=== PATIENT | male | born 1970 ===

== ENCOUNTER 2016-09-07 08:29 | Emergency (ER) | payer OTHER ==
[2016-09-07 08:34] VITALS: RESP 18; O2SAT 97
[2016-09-07] MEDS ORDERED: Sodium Chloride 0.9% 1,000 ML IV ONE (09:47)
[2016-09-07] MEDS ORDERED: Sodium Chloride 0.9% 1,000 ML ONE (10:05)
[2016-09-07 10:19] LABS: BASO # 0.1 K/uL (0.0-0.2); BASO % 0.7 % (0.0-2.0); EOS % 0.2 % (0.0-4.0); HEMATOCRIT 41.1 % (35.0-51.0); LYMPH # 1.7 K/uL (1.0-4.3); LYMPH % 17.7 % (20.0-40.0); MEAN CORPUSCULAR HEMOGLOBIN 28.8 pg (27.0-31.0); MEAN CORPUSCULAR HGB CONC 34.7 g/dL (33.0-37.0); MEAN PLATELET VOLUME 8.1 fL (7.2-11.7); MONO # 0.6 K/uL (0.0-0.8); MONO % 6.2 % (0.0-10.0); NRBC % 0.1 % (0.0-2.0); RED CELL DISTRIBUTION WIDTH 13.7 % (11.5-14.5); WHITE BLOOD COUNT 9.5 K/uL (4.8-10.8)
[2016-09-07 10:37] LABS: POTASSIUM 3.6 mmol/L (3.6-5.2); SODIUM 136 mmol/L (132-148)
[2016-09-07 10:39] LABS: BILIRUBIN,TOTAL 1.1 mg/dL (0.2-1.3); GFR AFRICAN-AMERICAN > 60
[2016-09-07 10:40] LABS: ALB/GLOB RATIO 1.4 (1.0-2.1); ALKALINE PHOSPHATASE 83 U/L (38-126); ALT/SGPT 44 U/L (21-72); AST/SGOT 41 U/L (17-59); BLOOD UREA NITROGEN 12 mg/dL (9-20); CARBON DIOXIDE 24 mmol/L (22-30); GLUCOSE,RANDOM 127 mg/dL (75-110); TOTAL PROTEIN 7.1 g/dL (6.3-8.3)
[2016-09-07 10:41] LABS: CHLORIDE 98 mmol/L (98-107)
--- NOTE | 2016-09-07 11:04 | C.PDOC ---
History Of Present Illness A 45 year old male presents to the ED c/o headaches across the front of the forehead for 4 days. Patient notes pain is worse in his life but experiences pain movements and symptoms is unrelieved by Motrin or Tylenol. Patient notes having a subjective fever and general achy pains all over the body but denies nausea, vomiting, photophobia, extremity weakness or any other complaints. Patient reports no other medical problems. Time Seen by Provider: 09/07/16 09:07 Chief Complaint (Nursing): Headache History Per: Patient History/Exam Limitations: no limitations Onset/Duration Of Symptoms: Days Current Symptoms Are (Timing): Still Present Severity: Mild Associated Symptoms: denies: Photophobia, Nausea, Vomiting, Extremity Weakness Past Medical History Reviewed: Historical Data, Nursing Documentation, Vital Signs Vital Signs: Last Vital Signs Temp 98.4 F 09/07/16 11:27 Pulse 63 09/07/16 11:27 Resp 18 09/07/16 11:27 BP 130/78 09/07/16 11:27 Pulse Ox 97 09/07/16 11:54 Surgical History: Cholecystectomy - [facility] Procedures CLOSURE SKIN & SUBCUTANEOUS NEC (10/26/12) LAPAROSCOPIC CHOLECYSTECTOMY (08/27/13) TETANUS TOXOID ADMINIST (10/26/12) Family History: States: Unknown Family Hx - Social History Hx Tobacco Use: No Hx Alcohol Use: Yes Hx Substance Use: No - Immunization History Hx Tetanus Toxoid Vaccination: No Hx Influenza Vaccination: No Hx Pneumococcal Vaccination: No Review Of Systems Except As Marked, All Systems Reviewed And Found Negative. Gastrointestinal: Negative for: Nausea, Vomiting Neurological: Negative for: Other (Photophobia. Extremity weakness) Physical Exam - Physical Exam Appears: Non-toxic, No Acute Distress Skin: Warm, Dry Head: Atraumatic, Normacephalic Eye(s): bilateral: Normal Inspection, PERRL, EOMI Respiratory: Normal Breath Sounds, No Rales, No Rhonchi, No Wheezing Gastrointestinal/Abdominal: Soft, No Tenderness Neurological/Psych: Oriented x3, Normal Speech, Normal Cognition, Normal Cranial Nerves, Normal Motor ED Course And Treatment - Laboratory Results Result Diagrams: 09/07/16 10:13 09/07/16 10:13 O2 Sat by Pulse Oximetry: 97 (Room air) Pulse Ox Interpretation: Normal - CT Scan/US Head Other Rad Studies (CT/US): Radiology Report Reviewed CT/US Interpretation: FINDINGS: HEMORRHAGE: No intracranial hemorrhage. BRAIN : No mass effect or edema. Small charles cisterna magna versus arachnoid cyst. No atrophy or chronic microvascular ischemic changes. Please note that MRI with diffusion imaging is more sensitive in the detection of acute ischemic event. VENTRICLES: No hydrocephalus. CALVARIUM: Unremarkable. PARANASAL SINUSES: Unremarkable as visualized. No significant inflammatory changes. MASTOID AIR CELLS: Unremarkable as visualized. No inflammatory changes. OTHER FINDINGS: None. IMPRESSION: No acute intracranial pathology identified. Findings as above. Medical Decision Making Medical Decision Making: Plans: -Toradol -Reglan -IV fluids -Reassess and disposition Pt feeling much better post peds WRIGHT resolved Labs and CT unremarkable no indication of SAH or infectious cause Plan dc home Disposition Counseled Patient/Family Regarding: Diagnosis, Need For Followup - Disposition Referrals: [facility] [Outside] Disposition: HOME/ ROUTINE Disposition Time: 14:30 Condition: GOOD Prescriptions: Naproxen [Naprosyn] 1 tab PO BID PRN #25 tab PRN Reason: Pain Instructions: Acute Headache (ED) Forms: Work Excuse - Clinical Impression Clinical Impression: Headache - Scribe Statement The provider has reviewed the documentation as recorded by the Scribe Luigi quijano All medical record entries made by the Scribe were at my direction and personally dictated by me. I have reviewed the chart and agree that the record accurately reflects my personal performance of the history, physical exam, medical decision making, and the department course for this patient. I have also personally directed, reviewed, and agree with the discharge instructions and disposition.
--- NOTE | 2016-09-07 14:17 | CT ---
PROCEDURE: CT HEAD WITHOUT CONTRAST. HISTORY: WRIGHT COMPARISON: None available. TECHNIQUE: Axial computed tomography images were obtained through the head/brain without intravenous contrast. Radiation dose: Total exam DLP = 769.75 mGy-cm. This CT exam was performed using one or more of the following dose reduction techniques: Automated exposure control, adjustment of the mA and/or kV according to patient size, and/or use of iterative reconstruction technique. FINDINGS: HEMORRHAGE: No intracranial hemorrhage. BRAIN: No mass effect or edema. Small charles cisterna magna versus arachnoid cyst. No atrophy or chronic microvascular ischemic changes. Please note that MRI with diffusion imaging is more sensitive in the detection of acute ischemic event. VENTRICLES: No hydrocephalus. CALVARIUM: Unremarkable. PARANASAL SINUSES: Unremarkable as visualized. No significant inflammatory changes. MASTOID AIR CELLS: Unremarkable as visualized. No inflammatory changes. OTHER FINDINGS: None. IMPRESSION: No acute intracranial pathology identified. Findings as above.
[2016-09-07 14:45] VITALS: BP 115/72; PULSE 65; TEMP 98.2
== END 2016-09-07 14:40 | disposition home or self-care (01) ==
LOC: C.ER 08:29
DX: R51 Headache (principal)
CPT/HCPCS: 70450; 80053; 85025; 96361; 96374; 96375; 99285; J1885; J2765; J7040

== ENCOUNTER 2016-12-19 18:50 | Emergency (ER) | payer OTHER ==
[2016-12-19 18:56] VITALS: PULSE 80; TEMP 98
[2016-12-19 19:39] LABS: RBC URINE 200 /hpf (0-3); URINE BACTERIA OCC (<OCC); URINE BILIRUBIN NEGATIVE (NEGATIVE); URINE BLOOD 3+ (NEGATIVE); URINE COLOR Yellow (YELLOW); URINE GLUCOSE (UA) NORMAL (Normal); URINE KETONE NEGATIVE (NEGATIVE); URINE LEUKOCYTE ESTERASE NEG Leu/uL (Negative); URINE PROTEIN NEGATIVE (NEGATIVE); URINE UROBILINOGEN NORMAL mg/dL (0.2-1.0); WBC URINE 2 /hpf (0-5)
[2016-12-19] MEDS ORDERED: Sodium Chloride 0.9% 500 ML IV ONE (19:58)
[2016-12-19] MEDS ORDERED: Sodium Chloride 0.9% 1,000 ML ONE (20:20)
[2016-12-19 20:22] LABS: BASO # 0.1 K/uL (0.0-0.2); BASO % 0.7 % (0.0-2.0); EOS # 0.1 K/uL (0.0-0.7); EOS % 0.8 % (0.0-4.0); HEMATOCRIT 44.1 % (35.0-51.0); LYMPH # 2.3 K/uL (1.0-4.3); LYMPH % 31.3 % (20.0-40.0); MEAN CELL VOLUME 83.5 fL (80.0-94.0); MEAN CORPUSCULAR HEMOGLOBIN 29.1 pg (27.0-31.0); MEAN CORPUSCULAR HGB CONC 34.9 g/dL (33.0-37.0); MEAN PLATELET VOLUME 7.9 fL (7.2-11.7); MONO # 0.6 K/uL (0.0-0.8); MONO % 8.5 % (0.0-10.0); RED CELL DISTRIBUTION WIDTH 14.1 % (11.5-14.5); WHITE BLOOD COUNT 7.3 K/uL (4.8-10.8)
[2016-12-19 20:37] LABS: CHLORIDE 100 mmol/L (98-107)
[2016-12-19 20:38] LABS: POTASSIUM 3.9 mmol/L (3.6-5.2); SODIUM 139 mmol/L (132-148)
[2016-12-19 20:40] LABS: ALB/GLOB RATIO 1.5 (1.0-2.1); ALKALINE PHOSPHATASE 73 U/L (38-126); AST/SGOT 22 U/L (17-59); BILIRUBIN,TOTAL 0.7 mg/dL (0.2-1.3); CARBON DIOXIDE 23 mmol/L (22-30); GFR AFRICAN-AMERICAN > 60; TOTAL PROTEIN 6.8 g/dL (6.3-8.3)
[2016-12-19 20:41] LABS: ALT/SGPT 44 U/L (21-72); BLOOD UREA NITROGEN 19 mg/dL (9-20); CALCIUM 8.9 mg/dl (8.6-10.4); GLUCOSE,RANDOM 103 mg/dL (75-110)
--- NOTE | 2016-12-19 22:03 | US ---
EXAM: US Retroperitoneal Complete, Renal CLINICAL HISTORY: 46 years old, male; Pain; Other: Flank pain; Additional info: R flank pain TECHNIQUE: Real-time ultrasound of the retroperitoneum (complete) with image documentation. EXAM DATE/TIME: 12/19/2016 7:59 PM COMPARISON: There are no prior studies for comparison. FINDINGS: Right kidney: Right kidney measures approximately 12.4 x 6.4 x 7.5 cm. Corticomedullary differentiation is maintained. There is moderate pelvocaliectasis. There is intrarenal flow on color imaging. There is a small shadowing nonobstructing right lower pole stone. Left kidney: Left kidney measures approximately 11.5 x 5.7 x 6 cm. There is no pelvocaliectasis. Corticomedullary differentiation is visualized. There is a nonobstructing left mid pole stone. There is a nonobstructing left lower pole stone. Bladder: Bladder is almost completely empty. IMPRESSION: Bilateral nonobstructing renal stones; right pelvocaliectasis, right ureteral stone suspected
--- NOTE | 2016-12-19 22:22 | C.PDOC ---
History Of Present Illness 46 year old male who presents to the ER with a complaint of 1 day h/o sudden onset of intermittent, squeezing, right flank pain. Patient states he has never had similar symptoms in the past; denies Hx of kidney stones, fever, chills, nausea, vomiting, diarrhea, dysuria, hematuria, incontinence, weakness, or numbness. Time Seen by Provider: 12/19/16 19:17 Chief Complaint (Nursing): Back Pain History Per: Patient History/Exam Limitations: no limitations Onset/Duration Of Symptoms: Hrs Current Symptoms Are (Timing): Still Present Quality Of Discomfort: Unable To Describe Previous Symptoms: None Associated Symptoms: None Exacerbating Factor(s): Nothing Recent travel outside of the [place]: No Past Medical History Reviewed: Historical Data, Nursing Documentation, Vital Signs Vital Signs: Last Vital Signs Temp 98 F 12/19/16 18:53 Pulse 80 12/19/16 22:58 Resp 14 12/19/16 22:58 BP 120/80 12/19/16 22:58 Pulse Ox 99 12/19/16 22:58 - Medical History PMH: No Chronic Diseases Surgical History: Cholecystectomy - [facility] Procedures CLOSURE SKIN & SUBCUTANEOUS NEC (10/26/12) LAPAROSCOPIC CHOLECYSTECTOMY (08/27/13) TETANUS TOXOID ADMINIST (10/26/12) Family History: States: Unknown Family Hx - Social History Hx Tobacco Use: No Hx Alcohol Use: Yes Hx Substance Use: No - Immunization History Hx Tetanus Toxoid Vaccination: No Hx Influenza Vaccination: No Hx Pneumococcal Vaccination: No Review Of Systems Except As Marked, All Systems Reviewed And Found Negative. Constitutional: Negative for: Fever, Chills Gastrointestinal: Negative for: Nausea, Vomiting, Diarrhea Genitourinary: Negative for: Dysuria, Incontinence, Hematuria Musculoskeletal: Positive for: Back Pain Neurological: Negative for: Weakness, Numbness Physical Exam - Physical Exam Appears: Well, Non-toxic, No Acute Distress Skin: Normal Color, Warm, Dry Head: Atraumatic, Normacephalic Oral Mucosa: Moist Neck: Normal, Normal ROM, Supple Chest: Symmetrical, No Tenderness Cardiovascular: Rhythm Regular, No Murmur Respiratory: Normal Breath Sounds, No Rales, No Rhonchi, No Wheezing Gastrointestinal/Abdominal: Soft, No Tenderness, No Organomegaly, No Mass, No Distention, No Guarding, No Rebound Back: Normal Inspection, CVA Tenderness (Mild right), No Vertebral Tenderness Extremity: Normal ROM, No Tenderness, No Swelling Pulses: Left Radial: Normal, Right Radial: Normal Neurological/Psych: Oriented x3, Normal Speech, Normal Cognition, Normal Cranial Nerves, Normal Motor, Normal Sensation ED Course And Treatment - Laboratory Results Result Diagrams: 12/19/16 20:18 12/19/16 20:18 Lab Interpretation: Normal Interpretation Of Abnormal: UA shows (+) blood O2 Sat by Pulse Oximetry: 96 (Room air) Pulse Ox Interpretation: Normal - CT Scan/US US renal Other Rad Studies (CT/US): Radiology Report Reviewed CT/US Interpretation: b/l nonobstructing renal stones; R pelvocaliectasis, R ureteral stone suspected Medical Decision Making Medical Decision Makin yo male who presents to the ER with a complaint of 1 day h/o sudden onset of intermittent, squeezing, right flank pain. Differential diagnosis : renal colic, musculoskeletal pain, UTI Plan: - CBC - CMP - IV - NS fluids - Toradol IV - UA - Renal US On re-evaluation, pt reports feeling much improved. Reports significant improvement R flank pain. On exam, patient is sitting up in bed comfortably in no acute distress. Abdomen is soft with no tenderness to deep palpation, no guarding, and no rebound, no CVA tenderness. Lab and US results reviewed : (+) blood in UA and (+) dilation of the R renal pelvis found on Renal US is consistent with diagnosis of renal colic. Diagnostic results d/w the pt. Pt notified of likely diagnosis, advised that he will need to f/u with his pmd and urology referral in 2 days for further evaluation. Pt advised that he will likely pass the stone. Advised to drink plenty of fluids, strain his urine. Rxs provided to the pt and instructed to take as prescribed. Advised to return to the ER at any time for any new or worsening symptoms. Disposition Counseled Patient/Family Regarding: Studies Performed, Diagnosis, Need For Followup, Rx Given - Disposition Referrals: [facility] [Outside] Disposition: HOME/ ROUTINE Disposition Time: 22:23 Condition: STABLE Additional Instructions: Follow up with the clinic in 2 days for re-evaluation. Take medications as prescribed. Return to the ER at any time for any new or worsening symptoms. 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 - Scribe Statement The provider has reviewed the documentation as recorded by the Scribe Gerry Mejía All medical record entries made by the Guevaraibhermann were at my direction and personally dictated by me. I have reviewed the chart and agree that the record accurately reflects my personal performance of the history, physical exam, medical decision making, and the department course for this patient. I have also personally directed, reviewed, and agree with the discharge instructions and disposition.
[2016-12-19 22:59] VITALS: BP 120/80; RESP 14
[2016-12-20 01:58] VITALS: O2SAT 96
== END 2016-12-19 22:59 | disposition home or self-care (01) ==
LOC: C.ER 18:50
DX: N20.0 Calculus of kidney (principal)
CPT/HCPCS: 76770; 80053; 81001; 85025; 96361; 96374; 99284; J1885; J7040

== ENCOUNTER 2017-04-14 13:25 | Emergency (ER) | payer OTHER ==
[2017-04-14 13:34] VITALS: BMI 32.3
--- NOTE | 2017-04-14 13:55 | C.PDOC ---
History Of Present Illness Costa Wang is a 46 year old male who presents complaining of bilateral elbow discomfort. He works by placing tiles, and constantly lifts heavy boxes. He reports symptoms started months ago but have worsened over the past 3 days. Patient describes having soreness to both elbows which radiates down to the hands, and intermittent numbness to both hands. No direct trauma or fall. He has not tried taking any medications at home. PMD: Dr. Heraclio Boothe Time Seen by Provider: 04/14/17 13:47 Chief Complaint (Nursing): Upper Extremity Problem/Injury History Per: Patient History/Exam Limitations: no limitations Onset/Duration Of Symptoms: Worse Since (3 days ago) Current Symptoms Are (Timing): Still Present Past Medical History Reviewed: Historical Data, Nursing Documentation, Vital Signs Vital Signs: Last Vital Signs Temp 98.2 F 04/14/17 14:29 Pulse 66 04/14/17 14:29 Resp 18 04/14/17 14:29 BP 128/76 04/14/17 14:29 Pulse Ox 97 04/14/17 15:14 - Medical History PMH: No Chronic Diseases Surgical History: Cholecystectomy - [facility] Procedures CLOSURE SKIN & SUBCUTANEOUS NEC (10/26/12) LAPAROSCOPIC CHOLECYSTECTOMY (08/27/13) TETANUS TOXOID ADMINIST (10/26/12) Family History: States: Unknown Family Hx - Social History Hx Tobacco Use: No Hx Alcohol Use: Yes Hx Substance Use: No - Immunization History Hx Tetanus Toxoid Vaccination: No Hx Influenza Vaccination: No Hx Pneumococcal Vaccination: No Review Of Systems Except As Marked, All Systems Reviewed And Found Negative. Musculoskeletal: Positive for: Other (Bilateral elbow discomfort, radiating to hands) Neurological: Positive for: Numbness (to both hands). Negative for: Weakness Physical Exam - Physical Exam Appears: Non-toxic, No Acute Distress Skin: Normal Color, Warm, Dry Head: Atraumatic, Normacephalic Eye(s): bilateral: Normal Inspection, PERRL, EOMI Neck: Normal, Normal ROM Extremity: Normal ROM, Tenderness (to palpation of bilateral elbows), Capillary Refill (< 2 sec), No Deformity, No Swelling Pulses: Left Radial: Normal, Right Radial: Normal Neurological/Psych: Oriented x3, Normal Speech, Normal Motor, Normal Sensation ED Course And Treatment O2 Sat by Pulse Oximetry: 97 (NC) Pulse Ox Interpretation: Normal Reassessment Condition: Improved Medical Decision Making Medical Decision Making: Time: 13:54 Initial Impression: 46 year old male with elbow discomfort Initial Plan: * Given 10 mg Decadron Inj IM and 600 mg Motrin PO Patient reports improvement in symptoms and stable for discharge home. Disposition Counseled Patient/Family Regarding: Diagnosis, Need For Followup, Rx Given - Disposition Referrals: Heraclio Boothe MD [Staff Provider] - [facility] [Outside] [facility] [Outside] Disposition: HOME/ ROUTINE Disposition Time: 13:55 Condition: STABLE Additional Instructions: FOLLOW UP IN CLINIC NEXT WEEK FOR RE-EVALUATION. IF SYMPTOMS GET WORSE OR ANY NEW CONCERNING SYMPTOMS DEVELOP RETURN TO ED. Prescriptions: Methylprednisolone [Medrol Dose Pack (21 tabs)] 4 mg PO DAILY #21 mg Ibuprofen [Motrin Tab] 1 tab PO Q6H PRN #15 tab PRN Reason: Pain, Moderate (4-7) Instructions: Elbow Sprain (ED), Paresthesia (ED) Forms: [employer] 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 - Scribe Statement The provider has reviewed the documentation as recorded by the Scribhermann Vazquez All medical record entries made by the Guevaraibhermann were at my direction and personally dictated by me. I have reviewed the chart and agree that the record accurately reflects my personal performance of the history, physical exam, medical decision making, and the department course for this patient. I have also personally directed, reviewed, and agree with the discharge instructions and disposition.
[2017-04-14] MEDS ORDERED: Dexamethasone 4 mg/1 ml IM STA (14:00)
[2017-04-14] MEDS ORDERED: Dexamethasone 4 mg/1 ml ONE (14:16)
[2017-04-14 14:30] VITALS: BP 128/76; PULSE 66; RESP 18; TEMP 98.2
[2017-04-14 15:08] VITALS: O2SAT 97
== END 2017-04-14 14:30 | disposition home or self-care (01) ==
LOC: C.ER 13:25
DX: R20.2 Paresthesia of skin (principal); M25.529 Pain in unspecified elbow
CPT/HCPCS: 96372; 99284; J1100

== ENCOUNTER 2017-12-07 20:39 | Emergency (ER) | payer SELFPAY ==
[2017-12-07 20:39] VITALS: BMI 32.3
[2017-12-07 21:08] VITALS: BP 130/70; PULSE 65; RESP 14; TEMP 98.7; O2SAT 97
--- NOTE | 2017-12-07 21:29 | C.PDOC ---
History Of Present Illness 47 yo male come in for evaluation of frontal headache gradually developed for past few days. Pt reports, pain is localized over forehead, worse with leaning forward . Pt admits, similar sx in past. Otherwise, pt denies known trauma or injury. recent illness, fever, chills, denies worse headache of life, dizziness , vertigo, visual changes, focal deficits, neck pain, sore throat, earache, CP, SOB, abd. pain, N/V, denies any other active complaints. Ambulate to ED for evaluation, not in any apparent distress. FYI: records from previous visit to ED on 08/2016 review, when pt was seen due to same complaints, CT head performed, no acute findings. Time Seen by Provider: 12/07/17 21:16 Chief Complaint (Nursing): Headache History Per: Patient Onset/Duration Of Symptoms: Gradual Past Medical History Reviewed: Historical Data, Nursing Documentation, Vital Signs Vital Signs: Last Vital Signs Temp 98.7 F 12/07/17 21:06 Pulse 65 12/07/17 21:06 Resp 14 12/07/17 21:06 BP 130/70 12/07/17 21:06 Pulse Ox 97 12/07/17 21:50 - Medical History PMH: No Chronic Diseases Surgical History: Cholecystectomy - [facility] Procedures CLOSURE SKIN & SUBCUTANEOUS NEC (10/26/12) LAPAROSCOPIC CHOLECYSTECTOMY (08/27/13) TETANUS TOXOID ADMINIST (10/26/12) Family History: States: Unknown Family Hx - Social History Hx Tobacco Use: No Hx Alcohol Use: Yes Hx Substance Use: No - Immunization History Hx Tetanus Toxoid Vaccination: No Hx Influenza Vaccination: No Hx Pneumococcal Vaccination: No Review Of Systems Except As Marked, All Systems Reviewed And Found Negative. Constitutional: Negative for: Fever, Chills Eyes: Negative for: Vision Change ENT: Negative for: Ear Discharge, Nose Discharge, Throat Pain, Throat Swelling Cardiovascular: Negative for: Chest Pain, Palpitations Respiratory: Negative for: Cough, Shortness of Breath Gastrointestinal: Negative for: Nausea, Vomiting, Abdominal Pain, Diarrhea Genitourinary: Negative for: Frequency, Incontinence Musculoskeletal: Negative for: Neck Pain, Back Pain Neurological: Positive for: Headache. Negative for: Weakness, Numbness, Dizziness Physical Exam - Physical Exam Appears: Well, Non-toxic, No Acute Distress Skin: Normal Color, Warm, Dry, No Rash, No Ecchymosis Head: Normacephalic Eye(s): bilateral: PERRL, EOMI Ear(s): Bilateral: Normal Nose: No Flaring, No Discharge Oral Mucosa: Moist, No Drooling, No Trismus, Other (no sinuses tenderness, no edema or erythema.) Tongue: Normal Appearing Lips: Normal Appearing Throat: No Erythema, No Drooling Neck: Normal ROM, Trachea Midline, No Midline Cervical Tenderness, No Step Off Deformity, Supple Cardiovascular: Rhythm Regular, No Friction Rub, No Murmur, No JVD Respiratory: No Decreased Breath Sounds, No Accessory Muscle Use, No Stridor, No Wheezing Gastrointestinal/Abdominal: Soft, No Tenderness Back: No CVA Tenderness Extremity: Normal ROM, No Pedal Edema, No Deformity, No Swelling Neurological/Psych: Oriented x3, Normal Speech, Normal Motor, Normal Sensation, Normal Reflexes ED Course And Treatment O2 Sat by Pulse Oximetry: 97 Pulse Ox Interpretation: Normal Progress Note: On re-evaluation, pt is afebrile, hemodynamicaly stable. Non- toxic. Ambulatory in ED with stable gait. PulsEOx 97% RA. Head: AT/NC. ENT: no acute findings. Neck: Supple, (-) carotid bruits B/L, (-) JVD. Lungs: CTA B /L, BS dequal B/L. CVS: (+)S1S2, reg. Abd: benign. Neurologicaly intact. Pt has clinical findings c/w headache, nos. Pt advised. ref. to f/u with PMD, Neuorlogy in 2-3 days for re-evaluation. return to ED if any worsening or new changes. Disposition Counseled Patient/Family Regarding: Diagnosis, Need For Followup, Rx Given - Disposition Referrals: Heraclio Boothe MD [Staff Provider] - Sukumar Browning MD [Staff Provider] - Disposition: HOME/ ROUTINE Disposition Time: 21:46 Condition: STABLE Additional Instructions: Take medication as prescribed Follow up with PMD, Neurology in 2-3 days for re-evaluation. return to ED if any worsening or new changes. Prescriptions: traMADol [Ultram] 50 mg PO TID #7 tab Instructions: Headache, Adult (DC) Forms: [employer] (Guatemalan) - Clinical Impression Clinical Impression: Headache
== END 2017-12-07 22:15 | disposition home or self-care (01) ==
LOC: C.ER 20:39
DX: R51 Headache (principal)

== ENCOUNTER 2018-07-16 19:33 | Emergency (ER) | payer SELFPAY ==
[2018-07-16 19:33] VITALS: BMI 32.3
[2018-07-16 19:52] VITALS: O2SAT 100
--- NOTE | 2018-07-16 22:51 | C.PDOC ---
History Of Present Illness 47 year old male with Hx of cholecystectomy presents with 2 weeks of intermittent mid abdominal pain. Patient state occasionally his abdomen gets "hard like a rock" and has a "lump" in the belly button. Patient notes his sister was recently diagnosed with cancer and believes he may have cancer. Denies fever, GI bleed, vomiting, diarrhea, or dysuria. Time Seen by Provider: 07/16/18 20:51 Chief Complaint (Nursing): Abdominal Pain History Per: Patient History/Exam Limitations: no limitations Onset/Duration Of Symptoms: Days, Intermittent Episodes Current Symptoms Are (Timing): Still Present Location Of Pain/Discomfort: Other (Mid) Quality Of Discomfort: Unable To Describe Associated Symptoms: denies: Fever, Chills, Nausea, Vomiting, Urinary Symptoms, Other (GI bleed) Exacerbating Factors: None Alleviating Factors: None Recent travel outside of the [place]: No Past Medical History Reviewed: Historical Data, Nursing Documentation, Vital Signs Vital Signs: Last Vital Signs Temp 98 F 07/16/18 19:47 Pulse 89 07/16/18 19:47 Resp 20 07/16/18 19:47 BP 136/91 H 07/16/18 19:47 Pulse Ox 100 07/16/18 19:47 Surgical History: Cholecystectomy (6 yrs ago) - [facility] Procedures CLOSURE SKIN & SUBCUTANEOUS NEC (10/26/12) LAPAROSCOPIC CHOLECYSTECTOMY (08/27/13) TETANUS TOXOID ADMINIST (10/26/12) Family History: States: Unknown Family Hx - Social History Hx Tobacco Use: No Hx Alcohol Use: Yes Hx Substance Use: No - Immunization History Hx Tetanus Toxoid Vaccination: No Hx Influenza Vaccination: No Hx Pneumococcal Vaccination: No Review Of Systems Constitutional: Negative for: Fever, Chills Cardiovascular: Negative for: Chest Pain, Palpitations Respiratory: Negative for: Cough, Shortness of Breath Gastrointestinal: Positive for: Abdominal Pain. Negative for: Nausea, Vomiting, Diarrhea, Other (GI bleed) Genitourinary: Negative for: Dysuria Musculoskeletal: Negative for: Back Pain Skin: Negative for: Rash Physical Exam - Physical Exam Appears: Non-toxic Skin: Normal Color, Warm, Dry Head: Atraumatic, Normacephalic Eye(s): bilateral: Normal Inspection Oral Mucosa: Moist Neck: Normal, Supple Chest: Symmetrical, No Tenderness Cardiovascular: Rhythm Regular Respiratory: Normal Breath Sounds, No Rales, No Rhonchi, No Wheezing Gastrointestinal/Abdominal: Soft, No Tenderness, No Distention, Hernia (Small reducible umbilical, no erythema.) Back: No CVA Tenderness Neurological/Psych: Oriented x3, Normal Speech ED Course And Treatment O2 Sat by Pulse Oximetry: 100 (Room air) Pulse Ox Interpretation: Normal - Other Rad Obstructive series X-Ray: Interpreted by Me, Viewed By Me Interpretation: Constipation. Medical Decision Making Medical Decision Making: Obstructive series ordered, results were positive for constipation. Patient resting comfortably in no acute distress, vitals are stable, will discharge home with Rx and instructions to follow up with PMD. Disposition - Disposition Referrals: Heraclio Boothe MD [Staff Provider] - Marcos Mcgill MD [Staff Provider] - Disposition: HOME/ ROUTINE Disposition Time: 22:44 Condition: GOOD Additional Instructions: Follow up with the medical doctor within 1-2 days. Return if worsened. Prescriptions: Famotidine [Pepcid] 20 mg PO BID #20 tab Polyethylene Glycol 3350 [Miralax] 17 gm PO DAILY PRN #100 ml PRN Reason: Constipation Instructions: Constipation, Adult (DC), Umbilical Hernia, Adult Forms: [employer] [facility] (Irish) - Clinical Impression Clinical Impression: Constipation - PA / MEDICAL BILLER CODER / Resident Statement MD/DO has reviewed & agrees with the documentation as recorded. - Scribe Statement The provider has reviewed the documentation as recorded by the Scribe Gerry Mejía All medical record entries made by the Scribe were at my direction and personally dictated by me. I have reviewed the chart and agree that the record accurately reflects my personal performance of the history, physical exam, medical decision making, and the department course for this patient. I have also personally directed, reviewed, and agree with the discharge instructions and disposition.
[2018-07-16 22:54] VITALS: BP 137/94; PULSE 60; RESP 18; TEMP 98.4
--- NOTE | 2018-07-17 11:11 | RAD ---
Date of service: 07/16/2018 PROCEDURE: Radiographs of the chest and abdomen (obstructive series) HISTORY: constipation, abd pain COMPARISON: None available. TECHNIQUE: AP radiograph of the chest, with upright and supine radiographs of the abdomen. FINDINGS: CHEST: Heart size appears within normal limits. No focal consolidation, significant pleural effusion, or definite pneumothorax. Please note that chest x-ray has limited sensitivity for the detection of pulmonary masses. ABDOMEN AND PELVIS: Right upper quadrant surgical clips. Nonspecific bowel gas pattern without evidence of obstruction. Moderate constipation. No definite free air. Mild elevation/eventration of the right hemidiaphragm. No acute osseous abnormality is detected. IMPRESSION: Right upper quadrant surgical clips. Nonspecific bowel gas pattern without evidence of obstruction. Moderate constipation.
== END 2018-07-16 23:14 | disposition home or self-care (01) ==
LOC: C.ER 19:33
DX: K59.00 Constipation, unspecified (principal)